=== PATIENT | female | born 1995 | race Caucasian/White ===

== ENCOUNTER 2018-05-27 10:12 | Emergency (ER) | payer OTHER ==
[~2018-05-27] VITALS: Ht 149.9 cm; Wt 66.2 kg
[2018-05-27] MEDS ORDERED: PRENATAL TABLE1 EAC3 (11:16)
[2018-05-27] MEDS ORDERED: DIALYVITE 800-1 EACH (11:16)
== END 2018-05-27 15:01 | disposition home or self-care (01) ==
LOC: ER 10:12
DX: O26.891 Other specified pregnancy related conditions, first trimester (principal); R10.2 Pelvic and perineal pain; Z34.01 Encounter for supervision of normal first pregnancy, first trimester

== ENCOUNTER 2018-07-02 20:43 | Emergency (ER) | payer OTHER ==
[~2018-07-02] VITALS: Ht 149.9 cm; Wt 66.7 kg
[~2018-07-02 20:43] MED LIST: DIALYVITE 800-1 EACH; PRENATAL TABLE1 EAC3
== END 2018-07-03 02:05 | disposition home or self-care (01) ==
LOC: ER 20:43
DX: O26.892 Other specified pregnancy related conditions, second trimester (principal); R10.2 Pelvic and perineal pain; Z34.02 Encounter for supervision of normal first pregnancy, second trimester

== ENCOUNTER 2018-07-03 02:26 | Inpatient (IN) | payer OTHER ==
[~2018-07-03] VITALS: Ht 149.9 cm; Wt 66.7 kg
== END 2018-07-04 18:59 | disposition home or self-care (01) | DRG 819 ==
LOC: LDR 02:26
PROVIDERS: ADMIT Specialist
PROC: 0UVC7ZZ Restriction of Cervix, Via Natural or Artificial Opening (ICD-10-PCS; principal; 2018-07-03 09:00)
DX: O34.32 Maternal care for cervical incompetence, second trimester (principal); Z34.03 Encounter for supervision of normal first pregnancy, third trimester; Z88.6 Allergy status to analgesic agent

== ENCOUNTER 2018-07-12 01:21 | Inpatient (IN) | payer OTHER ==
[~2018-07-12] VITALS: Ht 149.9 cm; Wt 66.7 kg
== END 2018-07-13 16:19 | disposition home or self-care (01) | DRG 768 ==
LOC: OBS/DEL 01:21 → LDR 02:14 → OB/GYN 08:43
PROVIDERS: ADMIT Specialist
PROC: 0UCC7ZZ Extirpation of Matter from Cervix, Via Natural or Artificial Opening (ICD-10-PCS; principal; 2018-07-12)
PROC: 10E0XZZ Delivery of Products of Conception, External Approach (ICD-10-PCS; 2018-07-12)
PROC: 4A1HXCZ Monitoring of Products of Conception, Cardiac Rate, External Approach (ICD-10-PCS; 2018-07-12)
PROC: BY4CZZZ Ultrasonography of Second Trimester, Single Fetus (ICD-10-PCS; 2018-07-12)
DX: O65.5 Obstructed labor due to abnormality of maternal pelvic organs (principal); Z37.1 Single stillbirth; O34.32 Maternal care for cervical incompetence, second trimester; O36.4XX0 Maternal care for intrauterine death, not applicable or unspecified; Z88.6 Allergy status to analgesic agent; O99.345 Other mental disorders complicating the puerperium; F43.21 Adjustment disorder with depressed mood; Z63.4 Disappearance and death of family member; Z3A.19 19 weeks gestation of pregnancy

== ENCOUNTER 2019-03-30 14:24 | Emergency (ER) | payer OTHER ==
[~2019-03-30] VITALS: Ht 152.4 cm; Wt 66.7 kg
== END 2019-03-30 21:08 | disposition home or self-care (01) ==
LOC: ER 14:24
DX: N92.1 Excessive and frequent menstruation with irregular cycle (principal)

== ENCOUNTER 2020-03-10 12:01 | Emergency (ER) | payer OTHER ==
[~2020-03-10] VITALS: Ht 180.3 cm; Wt 66.2 kg
[2020-03-10] MEDS ORDERED: PRENA1 CHEW TA1.4 MG (12:13)
[2020-03-10] MEDS ORDERED: GUAIFENESIN400 MG PO (19:49)
[2020-03-10] MEDS ORDERED: ACETAMINOPHEN650 M2 PO (19:49)
== END 2020-03-10 20:03 | disposition home or self-care (01) ==
LOC: ER 12:01
DX: O99.52 Diseases of the respiratory system complicating childbirth (principal); J06.9 Acute upper respiratory infection, unspecified; O26.891 Other specified pregnancy related conditions, first trimester; R10.2 Pelvic and perineal pain; O36.80X0 Pregnancy with inconclusive fetal viability, not applicable or unspecified; O26.851 Spotting complicating pregnancy, first trimester; Z3A.01 Less than 8 weeks gestation of pregnancy

== ENCOUNTER 2020-05-11 12:00 | Emergency (ER) | payer OTHER ==
[~2020-05-11] VITALS: Ht 149.9 cm; Wt 72.1 kg
[~2020-05-11 12:00] MED LIST changes: +ACETAMINOPHEN650 M2 PO; +GUAIFENESIN400 MG PO; +PRENA1 CHEW TA1.4 MG
[2020-05-11] MEDS ORDERED: VITAMIN B-650 M1 PO (12:24)
[2020-05-11] MEDS ORDERED: ACETAMINOPHEN650 M2 PO (17:35)
== END 2020-05-11 17:43 | disposition home or self-care (01) ==
LOC: ER 12:00
DX: O26.891 Other specified pregnancy related conditions, first trimester (principal); O26.851 Spotting complicating pregnancy, first trimester; Z34.01 Encounter for supervision of normal first pregnancy, first trimester

== ENCOUNTER 2020-05-23 05:35 | Day surgery (SDC) | payer OTHER ==
[~2020-05-23 05:35] MED LIST changes: +VITAMIN B-650 M1 PO
== END 2020-05-23 18:08 | disposition home or self-care (01) ==
LOC: CIR.AMB 05:35
PROVIDERS: ATTEND Obstetrics & Gynecology
DX: O34.32 Maternal care for cervical incompetence, second trimester (principal); Z3A.14 14 weeks gestation of pregnancy

== ENCOUNTER 2020-06-22 14:26 | Emergency (ER) | payer OTHER ==
[~2020-06-22] VITALS: Ht 149.9 cm; Wt 73.5 kg
== END 2020-06-22 18:57 | disposition home or self-care (01) ==
LOC: ER 14:26
DX: O26.892 Other specified pregnancy related conditions, second trimester (principal); E16.1 Other hypoglycemia; R42 Dizziness and giddiness; Z3A.18 18 weeks gestation of pregnancy

== ENCOUNTER 2020-06-29 00:53 | Inpatient (IN) | payer OTHER ==
[~2020-06-29] VITALS: Ht 121.9 cm; Wt 73.5 kg
[2020-06-30] MEDS ORDERED: WAL-SOM25 M1 (08:10)
[2020-06-30] MEDS ORDERED: PANTOPRAZOLE SO20 MG (08:10)
== END 2020-06-30 16:33 | disposition home or self-care (01) | DRG 807 ==
LOC: OBS/DEL 00:53 → LDR 18:33 → OB/GYN 06-30 11:36
PROVIDERS: ADMIT Obstetrics & Gynecology; ATTEND Obstetrics & Gynecology
PROC: 3E0P7VZ Introduction of Hormone into Female Reproductive, Via Natural or Artificial Opening (ICD-10-PCS; 2020-06-29)
PROC: 4A1HXFZ Monitoring of Products of Conception, Cardiac Rhythm, External Approach (ICD-10-PCS; 2020-06-29)
PROC: 10E0XZZ Delivery of Products of Conception, External Approach (ICD-10-PCS; principal; 2020-06-30)
DX: O26.872 Cervical shortening, second trimester (principal); Z37.1 Single stillbirth; O65.5 Obstructed labor due to abnormality of maternal pelvic organs; O34.32 Maternal care for cervical incompetence, second trimester; O28.3 Abnormal ultrasonic finding on antenatal screening of mother; O03.4 Incomplete spontaneous abortion without complication; Z3A.19 19 weeks gestation of pregnancy

== ENCOUNTER 2020-09-08 07:00 | Inpatient (IN) | payer OTHER ==
[~2020-09-08] VITALS: Ht 149.9 cm; Wt 70.3 kg
[~2020-09-08 07:00] MED LIST changes: +PANTOPRAZOLE SO20 MG; +WAL-SOM25 M1
[2020-09-08] MEDS ORDERED: AVIANE-28 TABL1 EACH PO (08:33)
[2020-09-12] MEDS ORDERED: PANTOPRAZOLE SO20 MG (09:59)
[2020-09-14] MEDS ORDERED: TRAMADOL HCL50 MG PO (10:10)
== END 2020-09-14 17:05 | disposition home or self-care (01) | DRG 747 ==
LOC: O/R 09-12 05:33 → OB/GYN 09-12 05:33 → O/R 09-12 15:37 → OB/GYN 09-12 15:39
PROVIDERS: ADMIT Obstetrics & Gynecology Maternal & Fetal Medicine; ATTEND Obstetrics & Gynecology Maternal & Fetal Medicine
PROC: 0UVC0ZZ Restriction of Cervix, Open Approach (ICD-10-PCS; principal; 2020-09-12)
DX: N88.3 Incompetence of cervix uteri (principal)

== ENCOUNTER 2023-04-15 08:50 | Emergency (ER) | payer OTHER ==
[~2023-04-15] VITALS: Ht 149.9 cm; Wt 70.8 kg
[~2023-04-15 08:50] MED LIST changes: +AVIANE-28 TABL1 EACH PO; +DSS100 MG PO; +OMEPRAZOLE40 MG PO; +TRAMADOL HCL50 MG PO
[2023-04-15 10:09] LABS: HEMATOCRIT 38.9 % (36.0-45.00); HEMOGLOBIN 13.7 g/dL (12.0-15.00); MEAN CELL VOLUME 97.5 fL (80.00-100.00); MEAN CORPUSCULAR HEMOGLOBIN 34.3 pg (27.00-32.0); MEAN CORPUSCULAR HGB CONC 35.2 g/dl (32.0-36.0); PLATELET COUNT 333 K/uL (150-450); RED BLOOD COUNT 3.99 M/uL (4.00-6.00); RED CELL DISTRIBUTION WIDTH 13.2 % (11.5-14.5)
[2023-04-15 10:12] LABS: PH,URINE 7.5 (5.0-8.0); URINE APPEARANCE Clear; URINE BILIRRUBIN Negative (NEGATIVE); URINE BLOOD Trace; URINE COLOR Yellow; URINE GLUCOSE Negative (NEGATIVE); URINE LEUKOCYTE Negative; URINE NITRATE Negative; URINE PROTEIN Negative (NEGATIVE); URINE UROBILINOGEN 0.2 E.U./dl
[2023-04-15 10:14] LABS: URINE BACTERIA 93.2 uL (0.0-1933); URINE EPITHELIAL CELLS 13.2 uL (0.0-38.8); URINE RBC 18.7 uL (0.0-20.8); URINE WBC 5.7 uL (0.0-23.2)
[2023-04-15 10:49] LABS: CREATININE SERUM 0.74 mg/dL (0.55-1.02); GFR 92.78; POTASSIUM 3.82 mEq/L (3.5-5.1)
== END 2023-04-15 12:47 | disposition home or self-care (01) ==
LOC: ER 08:51
PROVIDERS: General Practice
DX: O26.899 Other specified pregnancy related conditions, unspecified trimester (principal); R30.0 Dysuria; Z3A.00 Weeks of gestation of pregnancy not specified; Z88.6 Allergy status to analgesic agent; Z88.8 Allergy status to other drugs, medicaments and biological substances; Z20.822 Contact with and (suspected) exposure to COVID-19

== ENCOUNTER 2023-05-26 13:05 | Emergency (ER) | payer OTHER ==
[~2023-05-26] VITALS: Ht 152.4 cm; Wt 73.9 kg
[2023-05-26] MEDS ORDERED: PRENA1 TRUE CO1 EACH (13:10)
[2023-05-26 15:41] LABS: HEMATOCRIT 37.8 % (36.0-45.00); HEMOGLOBIN 13.2 g/dL (12.0-15.00); MEAN CELL VOLUME 95.3 fL (80.00-100.00); MEAN CORPUSCULAR HEMOGLOBIN 33.4 pg (27.00-32.0); PLATELET COUNT 366 K/uL (150-450); RED BLOOD COUNT 3.97 M/uL (4.00-6.00); RED CELL DISTRIBUTION WIDTH 13.5 % (11.5-14.5)
[2023-05-26 15:52] LABS: CALCIUM 9.1 mg/dL (8.5-10.1); CREATININE SERUM 0.56 mg/dL (0.55-1.02); GFR 127.99; POTASSIUM 3.8 mEq/L (3.5-5.1)
[2023-05-26 16:00] LABS: URINE APPEARANCE Clear; URINE BILIRRUBIN Negative (NEGATIVE); URINE BLOOD Small; URINE COLOR Yellow; URINE GLUCOSE Negative (NEGATIVE); URINE LEUKOCYTE Negative; URINE NITRATE Negative; URINE PROTEIN Negative (NEGATIVE); URINE UROBILINOGEN 0.2 E.U./dl
[2023-05-26 16:03] LABS: URINE BACTERIA 1273.7 uL (0.0-1933); URINE EPITHELIAL CELLS 40.7 uL (0.0-38.8); URINE RBC 17.8 uL (0.0-20.8); URINE WBC 15.7 uL (0.0-23.2)
== END 2023-05-26 18:15 | disposition home or self-care (01) ==
LOC: ER 13:05
PROVIDERS: General Practice
DX: O99.891 Other specified diseases and conditions complicating pregnancy (principal); Z3A.10 10 weeks gestation of pregnancy; R30.0 Dysuria; Z88.6 Allergy status to analgesic agent

== ENCOUNTER 2023-05-29 09:26 | Outpatient (CLI) | payer OTHER ==
[~2023-05-29 09:26] MED LIST changes: +PRENA1 TRUE CO1 EACH
== END 2023-05-29 09:28 | disposition home or self-care (01) ==
LOC: PRENATAL 09:26
PROVIDERS: ATTEND Obstetrics & Gynecology Maternal & Fetal Medicine
DX: O36.80X0 Pregnancy with inconclusive fetal viability, not applicable or unspecified (principal); Z36.82 Encounter for antenatal screening for nuchal translucency; Z3A.11 11 weeks gestation of pregnancy

== ENCOUNTER 2023-06-19 23:42 | Emergency (ER) | payer OTHER ==
[~2023-06-19] VITALS: Ht 152.4 cm; Wt 74.8 kg
[2023-06-20] MEDS ORDERED: ACETAMINOPHEN 500 MG GEL..CAP PO STA (00:37)
[2023-06-20 01:03] LABS: URINE APPEARANCE Clear; URINE BILIRRUBIN Negative (NEGATIVE); URINE BLOOD NHT; URINE COLOR Yellow; URINE GLUCOSE Negative (NEGATIVE); URINE LEUKOCYTE Small; URINE NITRATE Negative; URINE PROTEIN Negative (NEGATIVE); URINE UROBILINOGEN 0.2 E.U./dl
[2023-06-20 01:07] LABS: URINE BACTERIA 730.6 uL (0.0-1933); URINE EPITHELIAL CELLS 8.3 uL (0.0-38.8); URINE RBC 56.4 uL (0.0-20.8)
[2023-06-20 01:17] LABS: HEMATOCRIT 34.3 % (36.0-45.00); HEMOGLOBIN 12.1 g/dL (12.0-15.00); MEAN CELL VOLUME 95.9 fL (80.00-100.00); MEAN CORPUSCULAR HEMOGLOBIN 33.8 pg (27.00-32.0); MEAN CORPUSCULAR HGB CONC 35.2 g/dl (32.0-36.0); PLATELET COUNT 350 K/uL (150-450); RED BLOOD COUNT 3.58 M/uL (4.00-6.00); RED CELL DISTRIBUTION WIDTH 12.7 % (11.5-14.5)
[2023-06-20 02:03] LABS: CALCIUM 8.6 mg/dL (8.5-10.1); CREATININE SERUM 0.69 mg/dL (0.55-1.02); GFR 99.9; POTASSIUM 3.32 mEq/L (3.5-5.1)
== END 2023-06-20 05:52 ==
LOC: ER 23:43
PROVIDERS: General Practice
DX: O26.892 Other specified pregnancy related conditions, second trimester (principal); R10.2 Pelvic and perineal pain; Z88.6 Allergy status to analgesic agent; Z3A.14 14 weeks gestation of pregnancy

== ENCOUNTER 2023-07-19 09:02 | Emergency (ER) | payer OTHER ==
[~2023-07-19] VITALS: Ht 152.4 cm; Wt 76.2 kg
[2023-07-19] MEDS ORDERED: PROMETRIUM200 MG PO (09:12)
[2023-07-19 09:56] LABS: MEAN CELL VOLUME 94.7 fL (80.00-100.00); MEAN CORPUSCULAR HEMOGLOBIN 33.5 pg (27.00-32.0); MEAN CORPUSCULAR HGB CONC 35.3 g/dl (32.0-36.0); PLATELET COUNT 362 K/uL (150-450); RED BLOOD COUNT 3.59 M/uL (4.00-6.00); RED CELL DISTRIBUTION WIDTH 13.2 % (11.5-14.5)
[2023-07-19 10:34] LABS: URINE APPEARANCE Clear; URINE BILIRRUBIN Negative (NEGATIVE); URINE BLOOD Trace; URINE COLOR Yellow; URINE GLUCOSE Negative (NEGATIVE); URINE LEUKOCYTE Large; URINE NITRATE Negative; URINE PROTEIN Negative (NEGATIVE)
[2023-07-19 10:37] LABS: URINE BACTERIA 4220.7 uL (0.0-1933); URINE EPITHELIAL CELLS 40.6 uL (0.0-38.8); URINE RBC 68.5 uL (0.0-20.8); URINE WBC 19.3 uL (0.0-23.2)
[2023-07-19] MEDS ORDERED: CEFAZOLIN SODIUM 1,000 MG VIAL IV ONE (11:45)
== END 2023-07-19 12:18 | disposition home or self-care (01) ==
LOC: ER 09:03
PROVIDERS: Emergency Medicine
DX: Z33.1 Pregnant state, incidental (principal); N39.0 Urinary tract infection, site not specified; R10.2 Pelvic and perineal pain; Z88.5 Allergy status to narcotic agent; Z88.6 Allergy status to analgesic agent

== ENCOUNTER 2023-07-24 07:59 | Outpatient (CLI) | payer OTHER ==
[~2023-07-24 07:59] MED LIST changes: +PROMETRIUM200 MG PO
== END 2023-07-24 08:00 | disposition home or self-care (01) ==
LOC: PRENATAL 07:59
PROVIDERS: ATTEND Obstetrics & Gynecology Maternal & Fetal Medicine
DX: O35.3XX0 Maternal care for (suspected) damage to fetus from viral disease in mother, not applicable or unspecified (principal); O44.00 Complete placenta previa NOS or without hemorrhage, unspecified trimester; O34.30 Maternal care for cervical incompetence, unspecified trimester; Z3A.19 19 weeks gestation of pregnancy

== ENCOUNTER 2023-11-01 16:34 | Inpatient (IN) | payer OTHER ==
[~2023-11-01] VITALS: Ht 152.4 cm; Wt 1.8 kg
[2023-11-01] MEDS ORDERED: SENOKOT8.6 M1 PO (16:42)
[2023-11-01] MEDS ORDERED: IRON159 MG PO (16:43)
[2023-11-01] MEDS ORDERED: TERBUTALINE SULFATE 1 MG/ML AMPUL SUBCUTANEO NR (16:45)
[2023-11-01] MEDS ORDERED: RINGERS SOLUTION,LACTATED 1,000 ML IV SCH (16:45)
[2023-11-01 17:07] LABS: URINE APPEARANCE Clear; URINE BILIRRUBIN Negative (NEGATIVE); URINE BLOOD Negative; URINE COLOR Yellow; URINE GLUCOSE Negative (NEGATIVE); URINE KETONE Negative (NEGATIVE); URINE LEUKOCYTE Trace; URINE NITRATE Negative; URINE PROTEIN Negative (NEGATIVE); URINE UROBILINOGEN 0.2 E.U./dl
[2023-11-01 17:08] LABS: HEMOGLOBIN 10.3 g/dL (12.0-15.00); MEAN CELL VOLUME 94.9 fL (80.00-100.00); MEAN CORPUSCULAR HEMOGLOBIN 33.8 pg (27.00-32.0); MEAN CORPUSCULAR HGB CONC 35.7 g/dl (32.0-36.0); PLATELET COUNT 327 K/uL (150-450); RED BLOOD COUNT 3.05 M/uL (4.00-6.00); RED CELL DISTRIBUTION WIDTH 13.5 % (11.5-14.5)
[2023-11-01 17:11] LABS: URINE BACTERIA 4429.9 uL (0.0-1933); URINE EPITHELIAL CELLS 19.7 uL (0.0-38.8); URINE RBC 19.5 uL (0.0-20.8); URINE WBC 89.3 uL (0.0-23.2)
[2023-11-01 17:23] LABS: URINE CAST 0.45 uL (0.0-1.40)
[2023-11-01 17:33] LABS: ALBUMIN 2.8 gm/dL (3.4-5.0); BILIRUBIN TOTAL 0.38 mg/dL (0.3-1.2); CALCIUM 10.5 mg/dL (8.5-10.1); CREATININE SERUM 0.55 mg/dL (0.55-1.02); GFR 129.78; GLOBULINA 3.4 G/DL (2.4-3.5); TOTAL PROTEIN 6.2 gm/dL (6.4-8.2)
[2023-11-01 17:55] LABS: POTASSIUM 2.95 mEq/L (3.5-5.1)
[2023-11-01] MEDS ORDERED: CEFAZOLIN SODIUM 1,000 MG VIAL IV SCH (18:00)
[2023-11-02] MEDS ORDERED: TERBUTALINE SULFATE 1 MG/ML AMPUL SUBCUTANEO ONE (05:15)
[2023-11-02] MEDS ORDERED: NIFEDIPINE 30 MG TAB.SA.OSM PO SCH (15:10)
[2023-11-02] MEDS ORDERED: BETAMETHASONE ACETATE,SOD PHOS 30 MG/5 ML ML IM STA (16:58)
[2023-11-02] MEDS ORDERED: BETAMETHASONE ACETATE,SOD PHOS 30 MG/5 ML ML ONE (17:45)
[2023-11-02] MEDS ORDERED: MAGNESIUM SULFATE IN WATER 0.04 GM/ML IV.SOLN IV SCH (18:30)
[2023-11-02] MEDS ORDERED: MAGNESIUM SULFATE IN WATER 4 GM/100 ML PIGGYBACK IV ONE (18:30)
[2023-11-02] MEDS ORDERED: ONDANSETRON HCL 2 MG/ML VIAL IV ONE (19:00)
[2023-11-02] MEDS ORDERED: ONDANSETRON HCL 2 MG/ML VIAL ONE (19:19)
[2023-11-03] MEDS ORDERED: ACETAMINOPHEN 500 MG GEL..CAP PO ONE (08:22)
[2023-11-03] MEDS ORDERED: ACETAMINOPHEN 500 MG GEL..CAP PO PRN ×2 (08:30→11:15)
[2023-11-03] MEDS ORDERED: BETAMETHASONE ACETATE,SOD PHOS 30 MG/5 ML ML IM SCH ×2 (17:00)
[2023-11-03] MEDS ORDERED: MINERAL OIL 30 ML BLIST.PACK PO ONE (19:45)
[2023-11-03] MEDS ORDERED: MAGNESIUM HYDROXIDE 30 ML BLIST.PACK PO ONE (19:45)
[2023-11-04] MEDS ORDERED: ONDANSETRON HCL 4 MG in 0.9 % SODIUM CHLORIDE 50 ML IV PRN (18:00)
[2023-11-04 18:54] LABS: ALBUMIN 2.9 gm/dL (3.4-5.0); BILIRUBIN TOTAL 0.22 mg/dL (0.3-1.2); CREATININE SERUM 0.58 mg/dL (0.55-1.02); GFR 122.06; GLOBULINA 3.3 G/DL (2.4-3.5); TOTAL PROTEIN 6.2 gm/dL (6.4-8.2)
[2023-11-04 19:18] LABS: HEMATOCRIT 26.8 % (36.0-45.00); HEMOGLOBIN 9.6 g/dL (12.0-15.00); MEAN CELL VOLUME 96.5 fL (80.00-100.00); MEAN CORPUSCULAR HEMOGLOBIN 34.7 pg (27.00-32.0); PLATELET COUNT 338 K/uL (150-450); RED BLOOD COUNT 2.77 M/uL (4.00-6.00); RED CELL DISTRIBUTION WIDTH 13.7 % (11.5-14.5)
[2023-11-04 19:24] LABS: POTASSIUM 2.96 mEq/L (3.5-5.1)
[2023-11-04] MEDS ORDERED: POTASSIUM CHLORIDE/NACL 0.9% 20 MEQ/1,000 ML PIGGYBAG IV SCH (21:00)
[2023-11-04] MEDS ORDERED: POTASSIUM CHLORIDE 20MEQ/100ML H2O PB IV SCH (21:45)
[2023-11-05 12:29] LABS: MAGNESIUM 1.6 mg/dL (1.8-2.4)
[2023-11-05 12:54] LABS: POTASSIUM 2.9 mEq/L (3.5-5.1)
[2023-11-05] MEDS ORDERED: MAGNESIUM SULFATE IN WATER 50 ML IV NR (13:15)
[2023-11-05] MEDS ORDERED: POTASSIUM CHLORIDE 20MEQ/100ML H2O PB IV NR (13:15)
[2023-11-05 22:24] LABS: INR 0.99; PROTHROMBIN TIME 10.4 SECONDS (9.0-11.5)
[2023-11-05 22:32] LABS: ALBUMIN 2.7 gm/dL (3.4-5.0); BILIRUBIN TOTAL 0.24 mg/dL (0.3-1.2); CALCIUM 8.9 mg/dL (8.5-10.1); CREATININE SERUM 0.54 mg/dL (0.55-1.02); GFR 132.56; GLOBULINA 3.4 G/DL (2.4-3.5); MAGNESIUM 1.9 mg/dL (1.8-2.4); POTASSIUM 3.09 mEq/L (3.5-5.1); TOTAL PROTEIN 6.1 gm/dL (6.4-8.2)
[2023-11-06] MEDS ORDERED: OXYTOCIN 10 UNITS/ML VIAL ONE ×2 (11:59→16:19)
[2023-11-06] MEDS ORDERED: ERYTHROMYCIN BASE 1 GM TUBE OP ONE (11:59)
[2023-11-06] MEDS ORDERED: CEFAZOLIN SODIUM 1,000 MG VIAL ONE (12:14)
[2023-11-06] MEDS ORDERED: OXYTOCIN 10 UNITS/ML VIAL IV NR (12:45)
[2023-11-06] MEDS ORDERED: ERYTHROMYCIN BASE 1 GM TUBE OP NR (12:45)
[2023-11-06] MEDS ORDERED: OXYTOCIN 1,000 ML IV SCH (15:15)
[2023-11-06] MEDS ORDERED: MORPHINE SULFATE 4 MG/ML VIAL IV PRN (15:15)
[2023-11-06] MEDS ORDERED: METOCLOPRAMIDE HCL 5 MG/ML VIAL IV SCH (15:15)
[2023-11-06] MEDS ORDERED: ONDANSETRON HCL 2 MG/ML VIAL ONE (16:01)
[2023-11-06] MEDS ORDERED: MORPHINE SULFATE 2 MG/ML CARTRIDGE IV ONE (18:00)
[2023-11-06] MEDS ORDERED: SIMETHICONE 125 MG CAPSULE PO SCH (18:00)
[2023-11-06] MEDS ORDERED: SENNOSIDES 1 TAB TABLET PO SCH (21:00)
[2023-11-07] MEDS ORDERED: OxyCODONE HCL/APAP UD (PERCOCET) PO PRN ×2 (08:45→15:38)
[2023-11-07] MEDS ORDERED: PNV,CALCIUM 72/IRON/FOLIC ACID 1 TAB TABLET PO SCH (09:00)
[2023-11-07 10:01] LABS: HEMATOCRIT 28.6 % (36.0-45.00); HEMOGLOBIN 10.4 g/dL (12.0-15.00); MEAN CELL VOLUME 95.3 fL (80.00-100.00); MEAN CORPUSCULAR HEMOGLOBIN 34.6 pg (27.00-32.0); MEAN CORPUSCULAR HGB CONC 36.3 g/dl (32.0-36.0); PLATELET COUNT 415 K/uL (150-450); RED CELL DISTRIBUTION WIDTH 13.5 % (11.5-14.5)
[2023-11-07 16:35] LABS: HEMATOCRIT 29.1 % (36.0-45.00); HEMOGLOBIN 10.3 g/dL (12.0-15.00); MEAN CELL VOLUME 95.7 fL (80.00-100.00); MEAN CORPUSCULAR HEMOGLOBIN 33.8 pg (27.00-32.0); MEAN CORPUSCULAR HGB CONC 35.3 g/dl (32.0-36.0); PLATELET COUNT 403 K/uL (150-450); RED BLOOD COUNT 3.05 M/uL (4.00-6.00); RED CELL DISTRIBUTION WIDTH 13.4 % (11.5-14.5)
[2023-11-07] MEDS ORDERED: ENOXAPARIN SODIUM 40 MG/0.4 ML SYRINGE SUBCUTANEO STA (16:51)
[2023-11-07] MEDS ORDERED: HYOSCYAMINE SULFATE 0.125 MG TAB.SUBL SL SCH (17:00)
[2023-11-07] MEDS ORDERED: CEFOXITIN SODIUM 1,000 MG VIAL IV SCH (17:00)
[2023-11-07] MEDS ORDERED: FAMOTIDINE/PF 20 MG/2 ML VIAL IV PUSH SCH (21:00)
[2023-11-08] MEDS ORDERED: ENOXAPARIN SODIUM 40 MG/0.4 ML SYRINGE SUBCUTANEO SCH (09:00)
[2023-11-08 14:55] LABS: HEMATOCRIT 28.2 % (36.0-45.00); HEMOGLOBIN 10.1 g/dL (12.0-15.00); MEAN CELL VOLUME 96.5 fL (80.00-100.00); MEAN CORPUSCULAR HEMOGLOBIN 34.6 pg (27.00-32.0); MEAN CORPUSCULAR HGB CONC 35.9 g/dl (32.0-36.0); PLATELET COUNT 465 K/uL (150-450); RED BLOOD COUNT 2.93 M/uL (4.00-6.00); RED CELL DISTRIBUTION WIDTH 13.4 % (11.5-14.5)
[2023-11-09] MEDS ORDERED: MINERAL OIL 30 ML BLIST.PACK PO NR (10:00)
[2023-11-09] MEDS ORDERED: MAGNESIUM HYDROXIDE 30 ML BLIST.PACK PO NR (10:00)
[2023-11-09] MEDS ORDERED: LACTULOSE 20 G/30 ML BLIST.PACK PO NR (10:00)
[2023-11-09] MEDS ORDERED: FAMOtidine 20 MG TABLET PO SCH (17:00)
== END 2023-11-10 14:13 | disposition home or self-care (01) | DRG 786 ==
LOC: OBS/DEL 16:34 → LDR 11-02 18:15 → OBS/DEL 11-02 18:15 → OB/GYN 11-02 18:15
PROVIDERS: Specialist; ADMIT Obstetrics & Gynecology; ATTEND Obstetrics & Gynecology
PROC: 4A1HXCZ Monitoring of Products of Conception, Cardiac Rate, External Approach (ICD-10-PCS; 2023-11-02)
PROC: BY4FZZZ Ultrasonography of Third Trimester, Single Fetus (ICD-10-PCS; 2023-11-05)
PROC: BU4CZZZ Ultrasonography of Uterus and Ovaries (ICD-10-PCS; 2023-11-05)
PROC: 10D00Z0 Extraction of Products of Conception, High, Open Approach (ICD-10-PCS; principal; 2023-11-06 11:00)
DX: O32.1XX0 Maternal care for breech presentation, not applicable or unspecified (principal); O34.33 Maternal care for cervical incompetence, third trimester; O60.14X0 Preterm labor third trimester with preterm delivery third trimester, not applicable or unspecified; O36.8130 Decreased fetal movements, third trimester, not applicable or unspecified; O99.892 Other specified diseases and conditions complicating childbirth; N73.6 Female pelvic peritoneal adhesions (postinfective); O26.843 Uterine size-date discrepancy, third trimester; Z3A.33 33 weeks gestation of pregnancy; Z37.0 Single live birth; Z20.822 Contact with and (suspected) exposure to COVID-19